=== PATIENT | male | born 1960 | race Caucasian/White ===

== ENCOUNTER 2019-11-15 00:13 | Day surgery (SDC) | payer OTHER, SELFPAY ==
[2019-11-13 16:30] VITALS: BMI 28.8
--- NOTE | 2019-11-15 06:19 | ECG_ITS ---
Measurements Intervals [place] Rate: 77 P: -3 NC: 164 QRS: 25 QRSD: 84 T: 18 QT: 353 QTc: 400 Interpretive Statements SINUS RHYTHM CONSIDER INFERIOR INFARCT, AGE INDETERMINATE BASELINE ARTIFACT- I, II, AVR, V1 ABNORMAL ECG Electronically Signed On 11-15-2019 8:44:53 CDT by Juan Miguel Patel D.O.
--- NOTE | 2019-11-15 07:18 | WPDHPUPDATE1 ---
History and Physical Update Update Date/Time: 11/15/19 07:18 History and Physical has been reviewed, including an updated exam of the patient. There are NO changes in the patient's condition. Risks, benefits, and alternatives have been discussed and questions answered. Patient agrees to proceed with procedure.
[2019-11-15 08:10] VITALS: BP 148/104; PULSE 82; RESP 16; TEMP 36.4; O2SAT 96
[2019-11-15] MEDS: LACTATED RINGERS 1,000 ML 30 ML IV CONT (08:10)
--- NOTE | 2019-11-15 09:05 | P.PNAN_ITS ---
Anes - Initial Pre Proc Eval Procedure: Operation Date: 11/15/19 10:00 Proposed Procedures p Insertion SpaceOAR Hydrogel System - Mahesh Veronica MD Date/Time: 11/15/19 09:05 Surgeon: Mahesh Veronica MD Pre Op Diagnosis: prostate CA Patient Data Age: 59 Gender: M Height: 5 ft 10 in Weight: 91 kg Allergies Allergy/AdvReac Type Severity Reaction Status Date / Time No Known Allergies Allergy Verified 11/13/19 16:30 Home Medications Medication Instructions Recorded Confirmed Type amlodipine-valsartan 1 tablet PO DAILY 11/13/19 11/13/19 History Patient hx anesthesia problems: none Family hx anesthesia problems: none [facility] Past Medical History Medical History (Updated 11/15/19 @ 09:06 by Alexi Priest MD) HTN (hypertension) Surgical History Surgical History (Updated 11/15/19 @ 09:06 by Alexi Priest MD) H/O inguinal hernia repair Social History Social History (Updated 11/15/19 @ 09:06 by Alexi Priest MD) Smoking status: Former smoker Anes - Eval Final PreProcedure Day of Procedure 11/15/19 09:05 Patient weight: overweight Heart: regular rate and rhythm Lungs: clear to auscultation Airway: Mallampati scale class III Neurological: alert and oriented Last oral intake: >/= 8 hours ASA classification: II Emergent: no Anesthetic plan: proceed Anesthesia type and monitoring: general LMA and standard monitoring Informed Consent: The patient's anesthetic plan and its attendant risks and benefits were discussed with the patient/family/POA. Questions were solicited and answers provided to the satisfaction of the patient/family/POA.
[2019-11-15] MEDS: ceFAZolin 2 GM/D5W 50 ML 2 GM/50 ML BAG IVPB (09:26)
--- NOTE | 2019-11-15 09:46 | SUR.OPER ---
EBL:0CC
--- NOTE | 2019-11-15 09:49 | PM.PROC ---
Procedure Note - Detailed Date of procedure: 11/15/19 Pre-op diagnosis: prostate CA Post-op diagnosis: same Procedure performed: Insertion SpaceOAR Description of procedure: This patient has been diagnosed with prostate cancer. Patient has met with a radiation oncologist who has prescribed a course of radiation for treatment of the malignancy. Please refer to the Radiation Oncologist's note for radiation method, dose, number of fractions. After discussing with the radiation oncologist and the patient, it has been agreed upon to proceed with SpaceOAR placement. The purpose of SpaceOAR is to reduce rectal irradiation during radiation therapy by placing an absorbable polyethylene glycol (PEG) hydrogel (SpaceOAR) into perirectal fat space, thereby pushing the rectum away from the prostate. Prior to the procedure, a timeout was performed confirming the patient's identity and planned the procedure. Anesthesia was induced without complication. Antibiotics were administered prophylactically, and the patient completed an enema at home prior to the procedure. The patient was positioned in the dorsal lithotomy position. A transrectal ultrasound probe was inserted per rectum with clear visualization of the prostatic base and apex. SpaceOAR hydrogel was prepared as described in the commodity industry analyst?s 'Instructions For Use'. Under transrectal ultrasound guidance, a 15 cm 18G needle was inserted, transperineal, through the rectourethralis muscle and the needle tip advanced into the perirectal fat posterior to the prostate. The needle position, and downward bevel, were confirmed in both sagittal and axial hammond. 3-5cc of Sterile Saline was used to hydro-dissect the space between the Denonvilliers? fascia and anterior rectal wall. Aspiration did not yield any bleeding. With the needle tip at mid gland, the axial field was viewed to confirm the needle was not in the rectal wall -- movement of the needle tip without corresponding movement of the rectal wall confirmed perirectal placement. The assembled SpaceOAR delivery system was then attached to the 18G needle. Under ultrasound guidance in the sagittal plane, a smooth, continuous injection technique was used to dispense all 10cc of the SpaceOAR hydrogel into the space between the prostate and rectum. Optimal visualization of the needle during hydrogel administration was maintained at all times. An axial measurement of the space between the prostate (mid gland) and rectum immediately post-SpaceOAR injection was noted and measured [8.4mm]. No suspected penetration or compromise of the rectal wall occurred. Anesthesia: MAC Surgeon: Mahesh Veronica MD Estimated blood loss (mL): 0 Drains: No Packing: No Pathology: none sent Complications: No immediate complications Condition: stable Disposition: same day
[2019-11-15 10:00] VITALS: BP 121/86; PULSE 73; RESP 16; O2SAT 100
[2019-11-15 10:30] VITALS: BP 161/95; PULSE 73; RESP 16; O2SAT 97
[2019-11-15 10:58] VITALS: BP 155/90; PULSE 71; RESP 16; O2SAT 98
== END 2019-11-15 11:09 | disposition home or self-care (01) ==
PROVIDERS: Visit Provider Urology
PROC: (CPT 55874; principal; 2019-11-15 10:00)
DX: C61 Malignant neoplasm of prostate (principal); I10 Essential (primary) hypertension
CPT/HCPCS: 55874; 93005; A9270; J0690; J2250; J3010; J7120